=== PATIENT | female | born 1985 | race Hispanic/Latino ===

== ENCOUNTER 2016-06-19 17:25 | Emergency (ER) | payer MEDICAID ==
[2016-06-19 19:24] LABS: Urine Drugs of Abuse Note Disclamer
[2016-06-19 19:34] LABS: Bacteria,Urine 2+ /HPF (Negative); Bilirubin,Urine NEG (Negative); Blood,Urine SM (Negative); Ketones,Urine TR mg/dL (Negative); Leukocyte Esterase,Urine MOD (Negative); Mucus,Urine 3+ /HPF; Nitrite,Urine NEG (Negative)
[2016-06-19 20:29] LABS: Eosinophils % (Auto) 2.5 % (0.0-4.3); Hematocrit 39.7 % (30.3-42.9); Hemoglobin 13.2 gm/dl (10.1-14.3); Mean Corpuscular HGB Conc 33 % (30-34); Mean Corpuscular Hemoglobin 30 pg (28-32); Mean Corpuscular Volume 89 fl (79-97); Platelet Count 213 K/mm3 (140-440); Red Blood Count 4.45 M/mm3 (3.65-5.03); Red Cell Distribution Width 14.5 % (13.2-15.2); White Blood Count 9.2 K/mm3 (4.5-11.0)
[2016-06-19 21:04] LABS: Blood Urea Nitrogen 10 mg/dL (7-17); Calcium 8.9 mg/dL (8.4-10.2); Carbon Dioxide 24 mmol/L (22-30); Chloride 104.5 mmol/L (98-107); Glucose 94 mg/dL (65-100); Potassium 3.3 mmol/L (3.6-5.0); Sodium 143 mmol/L (137-145)
[2016-06-19 21:06] LABS: Anion Gap 18 mmol/L
[2016-06-19] MEDS ORDERED: K-DUR PO ONE (21:18)
[2016-06-19 21:32] VITALS: BP 120/91
[2016-06-19] MEDS ORDERED: MACROBID PO SCH (22:00)
[2016-06-20] MEDS ORDERED: REMERON PO ONE ×2 (00:21)
--- NOTE | 2016-06-20 00:21 | Emergency Department Report ---
ED Psych HPI - General Chief Complaint: Psych Stated Complaint: 1013 MH EVAL Time Seen by Provider: 06/19/16 19:50 Source: patient, police Mode of arrival: Ambulatory Limitations: No Limitations - History of Present Illness Initial Comments: 30-year-old female with a past medical history of PTSD and hysterectomy presents to the hospital complains of hallucinations and emotional instability. She states she has been off her Remeron for greater than one year. Lives of the day she's been hearing voices of the little girl and feeling her presence. Patient has self-inflicted burn stone to her bilateral forearms which she states she did to herself yesterday. Tetanus within 10 years for reported. Initially patient was yelling and uncooperative with staff upon arrival. Patient required Interior Design Teacher transport for mental health concerns. Patient displayed symptoms of paranoia, tangential and disorganized speech and appeared to be responding to internal stimuli with flight of ideas. Patient having uncontrolled been crying spells. She denies homicidal or suicidal ideation. - Related Data Previous Rx's Medication Instructions Recorded Last Taken Type HYDROcodone/APAP 10-325 [[place] 1 each PO Q6HR PRN #16 tablet 12/15/13 Unknown Rx 10-325 mg TAB] Promethazine [Phenergan] 25 mg PO Q6H PRN #12 tablet 12/15/13 Unknown Rx metroNIDAZOLE [Flagyl] 500 mg PO TID #21 tablet 12/15/13 Unknown Rx HYDROcodone/APAP 7.5-325 [[place] 1 each PO Q8HR PRN #14 tablet 12/10/15 Unknown Rx 7.5/325] Ondansetron [Zofran TAB] 4 mg PO Q8HR PRN #10 tablet 12/10/15 Unknown Rx Allergies Allergy/AdvReac Type Severity Reaction Status Date / Time acetaminophen Allergy Unknown Verified 12/15/13 11:23 [From Darvocet-N] cyclobenzaprine HCl Allergy Unknown Verified 12/15/13 11:23 [From Flexeril] levofloxacin [From Levaquin] Allergy Unknown Verified 12/15/13 11:23 propoxyphene napsylate Allergy Itching Verified 12/15/13 12:03 [From Darvocet-N] ED Review of Systems ROS: Stated complaint: 1013 MH EVAL Other details as noted in HPI Comment: All other systems reviewed and negative Other: Constitutional: No fevers chills Eyes: No eye pain visual changes ENT: No ear pain or throat pain Neck: Denies pain Respiratory: Denies cough wheezing shortness of breath Cardiovascular: Denies chest pain, palpitations, syncope GI: Denies abdominal pain, nausea, vomiting, diarrhea : Denies dysuria Musculoskeletal: Denies back pain Skin: As per HPI Neurologic: Denies headache, numbness, weakness Psychiatric: Denies suicidal ideation ED Past Medical Hx - Past Medical History Previous Medical History?: Yes Additional medical history: hypoglycemia - Surgical History Past Surgical History?: Yes Additional Surgical History: "sinus surgery"; "Left ankle pins and plates" ; "Cyst on R breast". Hysterectomy 6 years ago - Social History Smoking Status: Current Every Day Smoker Substance Use Type: None - Medications Home Medications: Home Medications Medication Instructions Recorded Confirmed Last Taken Type HYDROcodone/APAP 10-325 [[place] 1 each PO Q6HR PRN #16 tablet 12/15/13 Unknown Rx 10-325 mg TAB] Promethazine [Phenergan] 25 mg PO Q6H PRN #12 tablet 12/15/13 Unknown Rx metroNIDAZOLE [Flagyl] 500 mg PO TID #21 tablet 12/15/13 Unknown Rx HYDROcodone/APAP 7.5-325 [[place] 1 each PO Q8HR PRN #14 tablet 12/10/15 Unknown Rx 7.5/325] Ondansetron [Zofran TAB] 4 mg PO Q8HR PRN #10 tablet 12/10/15 Unknown Rx ED Physical Exam - General Limitations: No Limitations - Other Other exam information: General: No limitations, patient is alert in no acute distress Head exam: Atraumatic, normocephalic Eyes exam: Normal appearance ENT: Moist mucous membrane, normal oropharynx Neck exam: Normal inspection, full range of motion, no meningismus nontender Respiratory exam: Clear to auscultation bilateral, no wheezes, rales, crackles Cardiovascular: Normal rate and rhythm Abdomen: Soft, nondistended, and nontender Extremity: Full range of motion normal inspection no deformity Back: Normal Inspection, full range of motion, no tenderness Neurologic: Alert, oriented x3, cranial nerves intact, no motor or sensory deficit Psychiatric: Anxious, cooperative Skin: Bilateral superficial burn stone to bilateral volar surface offorearms ED Course Vital Signs 0106/19/16 06/19/16 17:58 18:04 21:28 Temperature 98.8 F 97.6 F Pulse Rate 92 H 98 H Respiratory 20 18 Rate Blood Pressure 138/89 Blood Pressure 120/91 [Right] O2 Sat by Pulse 99 99 98 Oximetry - Reevaluation(s) Reevaluation #1: 06/20/16 00:29 Patient cooperative but now but distraught since she would not be discharged home. I will restart Remeron at 15 mg daily at bedtime first dose now since that was the last medication patient was on. ED Medical Decision Making - Lab Data Result diagrams: 06/19/16 20:03 06/19/16 20:03 Lab Results 06/19/16 06/19/16 06/19/16 Range/Units 17:00 17:00 20:03 WBC (4.5-11.0) K/mm3 RBC (3.65-5.03) M/mm3 Hgb (10.1-14.3) gm/dl Hct (30.3-42.9) % MCV (79-97) fl MCH (28-32) pg MCHC (30-34) % RDW (13.2-15.2) % Plt Count (140-440) K/mm3 Lymph % (Auto) (13.4-35.0) % Faulk % (Auto) (0.0-7.3) % Eos % (Auto) (0.0-4.3) % Baso % (Auto) (0.0-1.8) % Lymph # (1.2-5.4) K/mm3 Faulk # (0.0-0.8) K/mm3 Eos # (0.0-0.4) K/mm3 Baso # (0.0-0.1) K/mm3 Seg Neutrophils % (40.0-70.0) % Seg Neutrophils # (1.8-7.7) K/mm3 Sodium 143 (137-145) mmol/L Potassium 3.3 L (3.6-5.0) mmol/L Chloride 104.5 (98-107) mmol/L Carbon Dioxide 24 (22-30) mmol/L Anion Gap 18 mmol/L BUN 10 (7-17) mg/dL Creatinine 0.5 L (0.7-1.2) mg/dL Estimated GFR > 60 ml/min BUN/Creatinine Ratio 20.00 % Glucose 94 (65-100) mg/dL Calcium 8.9 (8.4-10.2) mg/dL Total Creatine Kinase (30-135) units/L Urine Color Brittny (Yellow) Urine Turbidity Cloudy (Clear) Urine pH 6.0 (5.0-7.0) Ur Specific [place] 1.019 (1.003-1.030) Urine Protein 30 mg/dl (Negative) mg/dL Urine Glucose (UA) Neg (Negative) mg/dL Urine Ketones Tr (Negative) mg/dL Urine Blood Sm (Negative) Urine Nitrite Neg (Negative) Urine Bilirubin Neg (Negative) Urine Urobilinogen 4.0 (<2.0) mg/dL Ur Leukocyte Esterase Mod (Negative) Urine WBC (Auto) 88.0 H (0.0-6.0) /HPF Urine RBC (Auto) 1.0 (0.0-6.0) /HPF U Epithel Cells (Auto) 3.0 (0-13.0) /HPF Urine Bacteria (Auto) 2+ (Negative) /HPF Calcium Oxalate Crystal 1+ Urine Mucus 3+ /HPF Urine HCG, Qual Negative (Negative) Urine Opiates Screen Presumptive negative Urine Methadone Screen Presumptive negative Ur Barbiturates Screen Presumptive negative Ur Phencyclidine Scrn Presumptive negative Ur Amphetamines Screen Presumptive positive U Benzodiazepines Scrn Presumptive negative Urine Cocaine Screen Presumptive negative U Marijuana (THC) Screen Presumptive negative Drugs of Abuse Note Disclamer Plasma/Serum Alcohol (0-0.07) gm% 06/19/16 06/19/16 06/19/16 Range/Units 20:03 20:03 20:03 WBC 9.2 (4.5-11.0) K/mm3 RBC 4.45 (3.65-5.03) M/mm3 Hgb 13.2 (10.1-14.3) gm/dl Hct 39.7 (30.3-42.9) % MCV 89 (79-97) fl MCH 30 (28-32) pg MCHC 33 (30-34) % RDW 14.5 (13.2-15.2) % Plt Count 213 (140-440) K/mm3 Lymph % (Auto) 22.2 (13.4-35.0) % Faulk % (Auto) 7.5 H (0.0-7.3) % Eos % (Auto) 2.5 (0.0-4.3) % Baso % (Auto) 1.0 (0.0-1.8) % Lymph # 2.0 (1.2-5.4) K/mm3 Faulk # 0.7 (0.0-0.8) K/mm3 Eos # 0.2 (0.0-0.4) K/mm3 Baso # 0.1 (0.0-0.1) K/mm3 Seg Neutrophils % 66.8 (40.0-70.0) % Seg Neutrophils # 6.1 (1.8-7.7) K/mm3 Sodium (137-145) mmol/L Potassium (3.6-5.0) mmol/L Chloride (98-107) mmol/L Carbon Dioxide (22-30) mmol/L Anion Gap mmol/L BUN (7-17) mg/dL Creatinine (0.7-1.2) mg/dL Estimated GFR ml/min BUN/Creatinine Ratio % Glucose (65-100) mg/dL Calcium (8.4-10.2) mg/dL Total Creatine Kinase 43 (30-135) units/L Urine Color (Yellow) Urine Turbidity (Clear) Urine pH (5.0-7.0) Ur Specific [place] (1.003-1.030) Urine Protein (Negative) mg/dL Urine Glucose (UA) (Negative) mg/dL Urine Ketones (Negative) mg/dL Urine Blood (Negative) Urine Nitrite (Negative) Urine Bilirubin (Negative) Urine Urobilinogen (<2.0) mg/dL Ur Leukocyte Esterase (Negative) Urine WBC (Auto) (0.0-6.0) /HPF Urine RBC (Auto) (0.0-6.0) /HPF U Epithel Cells (Auto) (0-13.0) /HPF Urine Bacteria (Auto) (Negative) /HPF Calcium Oxalate Crystal Urine Mucus /HPF Urine HCG, Qual (Negative) Urine Opiates Screen Urine Methadone Screen Ur Barbiturates Screen Ur Phencyclidine Scrn Ur Amphetamines Screen U Benzodiazepines Scrn Urine Cocaine Screen U Marijuana (THC) Screen Drugs of Abuse Note Plasma/Serum Alcohol < 0.01 (0-0.07) gm% - Medical Decision Making 1013 and transferred form signed. Patient is medically clear for psychiatric admission awaiting acceptance and transfer. UA shows leukocytosis and patient will be covered with Macrobid twice a day for UTI. Potassium given for mild hypokalemia. UDS + for amphetamines, no signs of rhabdo - Differential Diagnosis suicidal, homicidal, psychosis, depression, PTSD, Critical Care Time: No Critical care attestation.: If time is entered above; I have spent that time in minutes in the direct care of this critically ill patient, excluding procedure time. ED Disposition Clinical Impression: Psychosis, Self mutilating behavior, PTSD (post-traumatic stress disorder), Noncompliance with medication regimen, UTI (urinary tract infection), Medical clearance for psychiatric admission, Hypokalemia, Amphetamine abuse Disposition: DC/TX PSY HOSP/PSY UNIT Is pt being admited?: No Does the pt Need Aspirin: No Condition: Stable Time of Disposition: 00:32 (awaiting acceptance)
[2016-06-20] MEDS ORDERED: MILK OF MAGNESIA PO PRN (00:36)
[2016-06-20] MEDS ORDERED: ALUM-MAG HYDROX-SIMETH 200-200-20MG/5ML PO PRN (00:36)
[2016-06-20] MEDS ORDERED: REMERON PO SCH (22:00)
== END 2016-06-20 11:20 ==
LOC: EEVIPCON 17:25 → ED 17:25
DX: F29 Unspecified psychosis not due to a substance or known physiological condition (principal); Z72.89 Other problems related to lifestyle; F43.10 Post-traumatic stress disorder, unspecified; Z91.14 Patient's other noncompliance with medication regimen; N39.0 Urinary tract infection, site not specified; E87.6 Hypokalemia; F15.10 Other stimulant abuse, uncomplicated; F17.200 Nicotine dependence, unspecified, uncomplicated
CPT/HCPCS: 36415; 80048; 80307; 81001; 81025; 82550; 85025; 99285; G0480; 80320

== ENCOUNTER 2018-07-12 16:23 | Emergency (ER) | payer MEDICAID, OTHER ==
--- NOTE | 2018-07-12 17:08 | Emergency Department Report ---
Chief Complaint: Headache Stated Complaint: RT SIDE HEAD KNOT/PAIN Time Seen by Provider: 07/12/18 17:08 - HPI History of Present Illness: CO 1 PAIN ON THE TOP OF HER HEAD ODD AFFECT TEARFUL HX PTSD OFF PSYCH MEDS 2 ALSO HERE FOR STD AND HIV DUE TO AN EXPOSURE TO HIV RX NONE- OFF LIVES W FAMILY CIG ETOH- NONE DRUGS DENIES DOES HISTORY NO HI NO SI MSE screening note: Focused history and physical exam performed. Due to findings the following was ordered: ED Disposition for MSE Condition: Stable
[2018-07-12 17:50] LABS: Hematocrit 41.8 % (30.3-42.9); Hemoglobin 13.8 gm/dl (10.1-14.3); Mean Corpuscular HGB Conc 33 % (30-34); Mean Corpuscular Volume 93 fl (79-97); Platelet Count 249 K/mm3 (140-440); Red Cell Distribution Width 14.9 % (13.2-15.2)
[2018-07-12 17:58] LABS: BUN/Creatinine Ratio 38; Blood Urea Nitrogen 15 mg/dL (7-17); Calcium 8.9 mg/dL (8.4-10.2); Hemolysis Index 33
--- NOTE | 2018-07-12 18:54 | Emergency Department Report ---
HPI - General Chief Complaint: Headache Time Seen by Provider: 07/12/18 17:08 - HPI HPI: 32-year-old female presents to the emergency department with 3 complaints. First, the patient complains of right-sided headache or head pain. Overall she says it has been going on for the past year but worsened over the past few days. She denies any vision change, slurred speech or any neurological deficits. She has not taken anything for her symptoms prior to presentation. Secondly, the patient complains of some pain to the right upper jaw where she thinks she has a dental infection. She denies any fever but says that she feels like her face is slightly swollen. Lastly, the patient is requesting to be checked for any and all STDs. She says that she overheard one of her sexual partners bragging about how they gave someone an STD and she thinks that this reference was regarding her. She denies any vaginal discharge, vaginal bleeding, rash or lesions. She has a past medical history of hepatitis C, PTSD. She is a tobacco smoker but denies any illicit drug use. ED Past Medical Hx - Past Medical History Previous Medical History?: Yes Hx Psychiatric Treatment: Yes (ptsd) Additional medical history: hypoglycemia, hep c - Surgical History Past Surgical History?: Yes Additional Surgical History: "sinus surgery"; "Left ankle pins and plates" ; "Cyst on R breast". Hysterectomy 6 years ago - Social History Smoking Status: Current Every Day Smoker Substance Use Type: None - Medications Home Medications: Home Medications Medication Instructions Recorded Confirmed Last Taken Type Fluticasone [Flonase] 1 spray NS QDAY #1 bottle 07/12/18 Unknown Rx RX: Doxycycline [Vibramycin CAP] 100 mg PO Q12HR #14 capsule 07/12/18 Unknown Rx ED Review of Systems ROS: Stated complaint: RT SIDE HEAD KNOT/PAIN Other details as noted in HPI Comment: All other systems reviewed and negative Constitutional: denies: chills, fever Eyes: denies: eye pain, vision change ENT: dental pain. denies: ear pain, throat pain Respiratory: denies: cough, shortness of breath Cardiovascular: denies: chest pain, palpitations Gastrointestinal: denies: abdominal pain, vomiting Genitourinary: denies: dysuria, discharge Musculoskeletal: denies: back pain, arthralgia Neurological: headache. denies: weakness, numbness Physical Exam - Physical Exam Vital Signs: Vital Signs 07/12/18 17:06 Temperature 97.5 F L Pulse Rate 98 H Respiratory 16 Rate Blood Pressure 126/81 Blood Pressure 126/81 [Left] O2 Sat by Pulse 100 Oximetry Physical Exam: GENERAL: The patient is well-developed well-nourished. HEENT: Normocephalic. Atraumatic. Patient has moist mucous membranes. No tonsillar hypertrophy, erythema or exudates. There is no visible or palpable dental abscess but the patient has multiple dental caries and poor dentition and has some tenderness to palpation along the gumline of the right upper maxilla. EYES: Extraocular motions are intact. Pupils are equal and reactive to light bilaterally. No nystagmus. NECK: Supple. Trachea is midline. CHEST/LUNGS: Clear to auscultation. There is no respiratory distress noted. HEART/CARDIOVASCULAR: Regular. There is no tachycardia. There is no obvious murmur. ABDOMEN: Abdomen is soft, nontender. Patient has normal bowel sounds. There is no abdominal distention. SKIN: Skin is warm and dry. NEURO: The patient is awake, alert, and oriented. The patient is cooperative. The patient has no focal neurologic deficits. The patient has normal speech. MUSCULOSKELETAL: There is no tenderness or deformity. There is no limitation range of motion. There is no evidence of acute injury. ED Course Vital Signs 07/12/18 17:06 Temperature 97.5 F L Pulse Rate 98 H Respiratory 16 Rate Blood Pressure 126/81 Blood Pressure 126/81 [Left] O2 Sat by Pulse 100 Oximetry ED Medical Decision Making - Lab Data Result diagrams: 07/12/18 17:25 07/12/18 17:25 - Radiology Data Radiology results: report reviewed CT of the head without contrast does not show any bleed, shift, mass, ischemia or any other acute process. There is pansinusitis which appears acute on chronic. - Medical Decision Making This patient presents to the emergency department with acute on chronic right- sided head pain. I do not see any obvious abnormalities. She does not have any focal, motor or sensory deficits in her cranial nerves are intact. CT of the head did not show any bleed, shift, mass, ischemia or any other acute process other than some acute on chronic pansinusitis. Patient's labs were unremarkable. The patient also comes complaining of possible exposure to STDs. She says that she had unprotected sex with someone yesterday and also gives some nonspecific description of her hearing them talk about her in reference giving her STDs such as HIV. The patient denies any rashes or general lesions. She denies any dysuria, vaginal discharge. The patient currently has hepatitis C. I spoke to the patient regarding exposure to HIV and the possibility of empirically taking HIV antiviral medications. The patient says that she is not interested in starting on any postexposure prophylaxis. Therefore I did not feel that it was necessary to do an HIV test at this time. The patient will be placed on doxycycline for both the pansinusitis and this would also cover some of the STDs. Patient says that she has a primary care physician for follow-up. She was also given a referral for the [facility]. She will return to the ER with any worsening of her symptoms or any acute distress. Critical Care Time: No Critical care attestation.: If time is entered above; I have spent that time in minutes in the direct care of this critically ill patient, excluding procedure time. ED Disposition Clinical Impression: Possible exposure to STD Headache Qualifiers: Headache type: unspecified Headache chronicity pattern: episodic headache Intractability: not intractable Qualified Code(s): R51 - Headache Sinusitis Qualifiers: Sinusitis location: unspecified location Chronicity: unspecified Qualified Code(s): J32.9 - Chronic sinusitis, unspecified Disposition: DC- TO HOME OR SELFCARE Is pt being admited?: No Condition: Stable Instructions: Acute Headache (ED) Additional Instructions: Please follow-up with your primary care physician in the next few days. I am also giving you a referral for the local health department. Take the antibiotics as prescribed. Return to the emergency Department with any worsening of your symptoms or any acute distress. Prescriptions: RX: Doxycycline [Vibramycin CAP] 100 mg PO Q12HR #14 capsule Fluticasone [Flonase] 1 spray NS QDAY #1 bottle Referrals: Primary Care provider, Your [Other] - 2-3 Days [facility] [Outside] - 2-3 Days Time of Disposition: 20:13
--- NOTE | 2018-07-12 20:04 | Cat Scan Report ---
FINAL REPORT EXAM: CT HEAD/BRAIN WO CON HISTORY: headache TECHNIQUE: CT head without contrast PRIORS: None. FINDINGS: No acute intra-axial or extra-axial hemorrhage is identified. There is no evidence of midline shift or mass effect. The ventricles and sulci are within normal limits. Rivera-white matter differentiation is intact. No acute parenchymal abnormalities seen. Bony calvarium is grossly intact. There is opacification throughout both maxillary sinuses, frontal a nd ethmoid white air cells. There is marked opacification within the sphenoid. Findings most consiste nt with sinusitis most likely acute on chronic. IMPRESSION: No acute intracranial findings Pansinusitis which appears acute on chronic
[2018-07-12 20:42] VITALS: BP 122/74
== END 2018-07-12 19:45 | disposition home or self-care (01) ==
LOC: ED 16:23
DX: J32.9 Chronic sinusitis, unspecified (principal); F43.10 Post-traumatic stress disorder, unspecified; F17.200 Nicotine dependence, unspecified, uncomplicated; Z20.2 Contact with and (suspected) exposure to infections with a predominantly sexual mode of transmission; Z88.6 Allergy status to analgesic agent; Z88.2 Allergy status to sulfonamides
CPT/HCPCS: 36415; 70450; 80048; 84443; 85027